=== PATIENT | male | born 1995 | race Caucasian/White ===

== ENCOUNTER → 2022-08-24 | Outpatient (CLI) | payer OTHER ==
--- NOTE | 2022-08-24 18:25 | EEG ---
ELECTROENCEPHALOGRAM REPORT PREAMBLE: This is a 27-year-old male with difficulty with going to sleep. He also complains of constant headache. CURRENT MEDICATIONS: None. EEG FINDINGS: This is a 21-channel digital EEG recorded with video component, utilizing 10/20 [employer] System with referential and bipolar montages. The background consists of well-developed, well-regulated, moderate-voltage activity in 10 to 11 Hz alpha, which is posterior dominant and reactive to eye opening and closing. Photic driving response was not clearly seen. Hyperventilation was not performed. Drowsiness was seen with appearance of bilaterally symmetric theta frequency rhythm. Deeper stages of sleep were not seen. No focal or generalized epileptiform activity was seen. EKG channel showed some slightly irregular rhythm. IMPRESSION: This is a normal awake and drowsy EEG. No focal, lateralized, or epileptiform activity was seen. EKG channel showed slight irregular rhythm. Clinical correlation recommended. ANDREAS / DAVID: [id number] /
== END ==
LOC: NEUROMAIN 07:49
PROVIDERS: ATTEND Family Medicine
DX: G47.9 Sleep disorder, unspecified (principal)
CPT/HCPCS: 95816

== ENCOUNTER → 2024-06-27 | Outpatient (CLI) | payer OTHER ==
--- NOTE | 2024-06-27 11:31 | CT ---
EXAMINATION TYPE: CT sinus wo con DATE OF EXAM: 06/27/2024 11:04 AM COMPARISON: None. CLINICAL INDICATION: Male, 28 years old with history of J32.0 CHRONIC MAXILLARY SINUSITIS, headaches TECHNIQUE: The paranasal sinuses are examined in the axial plane at 2 mm thick sections. Reconstruct ed images in the coronal plane were obtained. Contrast used: mL of , (none if empty) Oral contrast used: (none if empty) CT DLP: 624.2 mGycm, Automated exposure control for dose reduction was used. FINDINGS: There is dental amalgam scatter artifact. No suspicious soft tissue swelling from wisdom tooth remova l evident The maxillary sinuses are clear. The ethmoid air cells are clear. The sphenoid sinuses are clear. The frontal sinuses are clear. The septum is evaluated. There is septal deviation to the right. The ostiomeatal units are patent. IMPRESSION: 1. No acute or chronic changes for sinusitis. [facility], , 06/27/2024 11:29 AM
== END | disposition home or self-care (01) ==
LOC: RADCTMAIN 10:34
PROVIDERS: ATTEND Otolaryngology
DX: J32.0 Chronic maxillary sinusitis (principal)
CPT/HCPCS: 70486